=== PATIENT | female | born 1955 | race Caucasian/White ===

== ENCOUNTER 2017-01-09 07:38 | Emergency (ER) | payer BC, OTHER ==
[2017-01-09 07:49] VITALS: TEMP 98.4
--- NOTE | 2017-01-09 08:35 | EDPHY ---
H & P Stated Complaint: fell dancing monday night/l chest and rib pain Time Seen by Provider: 01/09/17 08:03 HPI/ROS: Chief Complaint: Left rib pain status post fall HPI: 7-year-old female states she was dancing on Monday at a [employer] which she had a mechanical fall, landed onto her left side. She has had chest pain in her anterior left chest below her breast since waking up the following morning. It hurts to take a deep breath. It is very tender to palpation. Also complaining of some pain in her left small finger. Did not hit her head. No loss of conscious. Has had some mild shortness of breath because of pain with inspiration. She does have a history of asthma. She is took some naproxen this morning. No fevers or chills. Not mild nonproductive cough. No abdominal pain. ROS: 10 point Review of Systems is negative except as noted in the HPI. PMH: Asthma Social History: No smoking, occasional alcohol, no recreational drug use Family History: non-contributory Physical Exam: Gen: Awake, Alert, No Distress HEENT: Nose: no rhinorrhea Eyes: PERRLA, EOMI Mouth: Moist mucosa Neck: Supple, no JVD Chest: She has got significant chest wall tenderness just inferior to her left breast reproducing her presenting complaint. There is also some lateral tenderness in the anterior axillary line, lungs clear to auscultation Heart: S1, S2 normal, no murmur Abd: Soft, non-tender, no guarding Back: no CVA tenderness, no midline tenderness Ext: no edema, left 5th phalanx has ecchymosis and tenderness over the proximal phalanx and the MCP joint. Skin: no rash Neuro: CN II-XII intact, Sensation grossly intact, Strength 5/5 in bilateral upper and lower extremities - Personal History Current Tetanus/Diphtheria Vaccine: Yes - Medical/Surgical History Hx Asthma: Yes Hx Chronic Respiratory Disease: No Hx Diabetes: No Hx Cardiac Disease: No Hx Renal Disease: No Hx Cirrhosis: No Hx Alcoholism: No Hx HIV/AIDS: No Hx Splenectomy or Spleen Trauma: No Other PMH: appy/hypothyroid/resp failure/restless legs - Social History Smoking Status: Never smoked Constitutional: Initial Vital Signs Temperature (C) 36.9 C 01/09/17 07:45 Heart Rate 84 01/09/17 07:45 Respiratory Rate 20 01/09/17 07:45 Blood Pressure 118/73 01/09/17 07:45 O2 Sat (%) 93 01/09/17 07:45 O2 Delivery Mode Room Air Allergies/Adverse Reactions: No Known Allergies Allergy (Unverified 01/09/17 07:43) Home Medications: Medication Instructions Recorded Albuterol 01/09/17 Antihistimine 01/09/17 Breo Ellipta 100-25 Mcg INH 01/09/17 Hydrocodone/Acetaminophen 1 - 2 each PO Q4-6PRN PRN #10 01/09/17 [Hydrocodon-Acetaminophen 5-325] tablet Levothyroxine 01/09/17 Oxybutynin 01/09/17 Ropinirole ER 01/09/17 Sertraline HCl 01/09/17 Singulair 01/09/17 Medical Decision Making - Diagnostics Imaging Results: Imaging Impressions Chest X-Ray 01/09/17 07:59 Impression: 1. Plate of atelectasis versus scar left lower lung. 2. Asymmetrical nodular density left upper lobe. If there are any old outside chest x-rays, we would be happy to review them to assess for interval change. If none are available, then recommend noncontrast chest CT for further evaluation. Results called to Dr. Cheng at 9:14 AM. 2. Left Fifth Finger Clinical Indications: Pain post fall Findings: Bones are intact without fracture or dislocation. 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 Impression: Nothing acute. Osteoarthritis DIP joint. Finger X-Ray 01/09/17 07:59 Impression: 1. Plate of atelectasis versus scar left lower lung. 2. Asymmetrical nodular density left upper lobe. If there are any old outside chest x-rays, we would be happy to review them to assess for interval change. If none are available, then recommend noncontrast chest CT for further evaluation. Results called to Dr. Cheng at 9:14 AM. 2. Left Fifth Finger Clinical Indications: Pain post fall Findings: Bones are intact without fracture or dislocation. 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 Impression: Nothing acute. Osteoarthritis DIP joint. Chest CT 01/09/17 09:30 Impression: 1. Scattered mucous plugging with a 5 mm nodular right lower lobe opacity most likely related to mucous plugging and bronchiectasis and scattered additional tiny pulmonary nodules of doubtful clinical significance. Fleischner Society guidelines state that follow up in one year is optional for a former smoker. 2. No suspicious nodules in the area of the radiographic abnormality which is likely related to summation. 3. Nondisplaced anterior left third through sixth rib fractures. 4. Additional findings as above. Imaging: I viewed and interpreted images myself ED Course/Re-evaluation: Patient with 4 anterior rib fractures. She is well-appearing. Normal hemodynamics. Pain is well controlled. Will discharge with analgesia and incentive spirometry. Will refer for outpatient follow-up. - Data Points Medications Given: Discontinued Medications Acetaminophen (Tylenol) 1,000 mg PO EDNOW ONE Stop: 01/09/17 10:26 Last Admin: 01/09/17 10:29 Dose: 1,000 mg Departure - Departure Disposition: Home, Routine, Self-Care Clinical Impression: Rib fractures Condition: Good Instructions: Rib Fracture (ED) Additional Instructions: Please make sure to take the pain medicines that urine able to take deep breaths. Use the breathing machine every 10 minutes while awake. Follow up with primary care physician in 2-3 days for re-evaluation. Referrals: NONE *PRIMARY CARE P,. [Primary Care Provider] - As per Instructions Rosario Gold MD [Doctor of Osteopathy] - As per Instructions Prescriptions: Hydrocodone/Acetaminophen [Hydrocodon-Acetaminophen 5-325] 1 - 2 each PO Q4- 6PRN PRN #10 tablet PRN Reason: Pain, Severe
[2017-01-09] MEDS ORDERED: ACETAMINOPHEN 500 MG TAB PO ONE (10:25)
[2017-01-09] MEDS ORDERED: ACETAMINOPHEN 500 MG TAB ONE (10:25)
[2017-01-09 11:24] VITALS: BP 111/64; PULSE 76; RESP 14; O2SAT 94
== END 2017-01-09 12:04 | disposition home or self-care (01) ==
DX: S22.42XA Multiple fractures of ribs, left side, initial encounter for closed fracture (principal); J45.909 Unspecified asthma, uncomplicated; W18.39XA Other fall on same level, initial encounter; Y99.8 Other external cause status; Y93.41 Activity, dancing